=== PATIENT | female | born 1945 | race Caucasian/White ===

== ENCOUNTER → 2021-04-14 17:38 | Outpatient (CLI) | payer MEDICARE, OTHER, SELFPAY ==
[2021-04-14 20:08] LABS: COVID19 -Nasal RAPID Negative (Negative)
== END ==
PROVIDERS: PCP Family Medicine; Visit Provider Nurse Practitioner
DX: Z20.822 Contact with and (suspected) exposure to COVID-19 (principal); J31.2 Chronic pharyngitis
CPT/HCPCS: 87070; 87635

== ENCOUNTER → 2024-01-12 09:00 | Outpatient (CLI) | payer MEDICARE, SELFPAY | PROVIDERS: PCP Family Medicine; Visit Provider Registered Nurse | DX: R30.0 Dysuria (principal) | CPT/HCPCS: 87077; 87086 ==

== ENCOUNTER → 2024-02-18 08:22 | Outpatient (CLI) | payer MEDICARE, SELFPAY ==
[2024-02-18 08:51] LABS: Add Manual Diff / Slide Review NO; Basophils Absolute Auto 100 /uL (0-100); Eosinophils Absolute Auto 100 /uL (0-450); Eosinophils Percent Auto 1.5 % (2-4); Hemoglobin 14.6 g/dL (12.0-16.0); Lymphocytes Absolute Auto 2100 /uL (1100-4500); Lymphocytes Percent Auto 33.6 % (25-40); Mean Corpuscular HGB Conc 34.9 % (30-36); Mean Corpuscular Hemoglobin 32.7 PG (26-34); Mean Corpuscular Volume 93.8 fL (80-100); Monocytes Absolute Auto 500 /uL (0-900); Monocytes Percent Auto 7.8 % (3-14); Neutrophils Absolute Auto 3500 /uL (1500-7000); Neutrophils Percent Auto 56.1 % (50-75); Platelet Count 267 X10^3/uL (150-400); Red Blood Cell Count 4.47 X10^6/uL (4.0-5.2); Red Cell Distribution Width 12.4 % (11.6-14.8); White Blood Cell Count 6.3 X10^3/uL (4.5-11.0)
[2024-02-18 09:01] LABS: Hemoglobin A1C% w Est Avg Glu 5.9 % (4.0-6.0)
[2024-02-18 09:17] LABS: Alanine Aminotransferase 25 IU/L (<35); Albumin 4.6 g/dL (3.5-5.0); Albumin Globulin Ratio 1.7 (1.0-2.8); Alkaline Phosphatase 94 U/L (38-126); Aspartate Aminotransferase 28 IU/L (14-36); BUN Creatinine Ratio 24.1 (6-22); Bilirubin Total 0.6 mg/dL (0.2-1.3); Blood Urea Nitrogen 19 mg/dL (7-17); Calcium 9.3 mg/dL (8.4-10.2); Carbon Dioxide 25 mmol/L (22-32); Chloride 106 mmol/L (98-107); Cholesterol 267 mg/dL (140-199); Estimated Glomerular Filt Rate > 60 mL/min (>60); Globulin 2.7 g/dL (1.7-4.1); Glucose 132 mg/dL (80-110); HDL Cholesterol 62 mg/dL (40-60); HEMOLYSIS < 15 (0-50); LDL Cholesterol Calculated 150 mg/dL (<100); Potassium 4.5 mmol/L (3.4-5.1); Sodium 139 mmol/L (137-145); Total Protein 7.3 g/dL (6.3-8.2); Triglycerides 274 mg/dL (35-150)
[2024-02-18 09:21] LABS: High Sensitivity CRP - Cardiac 5.2 mg/L (1.0-3.0)
[2024-02-18 09:41] LABS: TSH w/ Reflex to FT4 3.12 uIU/mL (0.47-4.68)
[2024-02-18 10:00] LABS: Vitamin B12 367 pg/mL (239-931)
== END ==
PROVIDERS: PCP Family Medicine; Referring Provider Family Medicine; Visit Provider Family Medicine
DX: R73.9 Hyperglycemia, unspecified; E78.00 Pure hypercholesterolemia, unspecified; R25.2 Cramp and spasm; R59.1 Generalized enlarged lymph nodes; R53.83 Other fatigue; R03.0 Elevated blood-pressure reading, without diagnosis of hypertension
CPT/HCPCS: 36415; 80053; 80061; 82607; 83036; 83525; 83735; 84443; 85025; 86140

== ENCOUNTER → 2024-06-08 15:00 | Outpatient (CLI) | payer MEDICARE, SELFPAY ==
--- NOTE | 2024-06-08 15:02 | DI.RAD.S_ITS ---
PROCEDURE: XR HIP W PEL IF DONE FERNANDO MIN 4V INDICATIONS: Tightness R upper thigh; weakness R leg; possible OA TECHNIQUE: AP pelvis with lateral view(s) of the bilateral hip(s). COMPARISON: None. FINDINGS: Mild degenerative change of the right hip. Joint space of the left hip is well maintained. No acute fracture or dislocation of either hip. 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 Multiple lucent lesion in the right femur diaphysis, partially visualized. 2.7 cm sclerotic lesion in the posterior iliac wing, nonspecific. IMPRESSION: Multiple lucent lesions in the right femur diaphysis, partially visualized. Recommend further evaluation with dedicated right femur radiograph. Dictated by: Mary Badillo M.D. on 06/08/2024 at 18:24 Approved by: Mary Badillo M.D. on 06/08/2024 at 18:27
== END ==
PROVIDERS: Family Provider Family Medicine; PCP Family Medicine; Referring Provider Physician Assistant; Visit Provider Physician Assistant
DX: M62.89 Other specified disorders of muscle (principal); M89.9 Disorder of bone, unspecified; R29.898 Other symptoms and signs involving the musculoskeletal system
CPT/HCPCS: 73522

== ENCOUNTER → 2024-06-28 12:12 | Outpatient (CLI) | payer MEDICARE, SELFPAY ==
[2024-06-29 12:43] LABS: C difficie Toxins A and B, EIA Negative (Negative)
[2024-06-30 18:06] LABS: Calprotectin, Stool 26 ug/g (0-120)
== END ==
PROVIDERS: Physician Assistant; Family Provider Family Medicine; PCP Family Medicine; Referring Provider Family Medicine; Visit Provider Family Medicine
DX: R19.7 Diarrhea, unspecified (principal); R11.0 Nausea
CPT/HCPCS: 83993; 87324

== ENCOUNTER 2024-07-02 17:29 | Emergency (ER) | payer MEDICARE, SELFPAY ==
[2024-07-02] VITALS (9 sets, daily range): BP systolic 207–214; BP diastolic 89–101; PULSE 61–73; RESP 16–22; TEMP 36.7; O2SAT 97–99; BMI 28.8
--- NOTE | 2024-07-02 17:54 | DI.RAD.S_ITS ---
PROCEDURE: XR CHEST 1V INDICATIONS: chest pain TECHNIQUE: One view of the chest was acquired. COMPARISON: None. FINDINGS: Surgical changes and devices: None. Lungs and pleura: Hazy left mid lung zone opacity. Hazy right suprahilar opacity. Mediastinum: Mediastinal contours appear normal. Heart size is normal. Bones and chest wall: No suspicious bony lesions. Overlying soft tissues appear unremarkable. IMPRESSION: Hazy bilateral airspace opacities, concerning for atypical pneumonia. Dictated by: Damian White M.D. on 07/02/2024 at 18:48 Approved by: Damian White M.D. on 07/02/2024 at 18:50
--- NOTE | 2024-07-02 18:05 | EKG_ITS ---
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
[2024-07-02 18:42] LABS: Add Manual Diff / Slide Review NO; Basophils Absolute Auto 100 /uL (0-100); Basophils Percent Auto 0.8 % (0-2); Eosinophils Absolute Auto 100 /uL (0-450); Eosinophils Percent Auto 1.2 % (2-4); Hematocrit 38.7 % (36-46); Lymphocytes Absolute Auto 2300 /uL (1100-4500); Lymphocytes Percent Auto 30.5 % (25-40); Mean Corpuscular HGB Conc 33.7 % (30-36); Mean Corpuscular Hemoglobin 31.7 PG (26-34); Monocytes Absolute Auto 600 /uL (0-900); Monocytes Percent Auto 8.2 % (3-14); Neutrophils Absolute Auto 4400 /uL (1500-7000); Neutrophils Percent Auto 59.3 % (50-75); Platelet Count 237 X10^3/uL (150-400); Red Blood Cell Count 4.12 X10^6/uL (4.0-5.2); White Blood Cell Count 7.4 X10^3/uL (4.5-11.0)
[2024-07-02 18:52] LABS: INR 1.2 (0.9-1.3); Prothrombin Time 13.5 SECONDS (9.4-12.5)
[2024-07-02 18:54] LABS: Alanine Aminotransferase 44 IU/L (<35); Albumin 4.4 g/dL (3.5-5.0); Albumin Globulin Ratio 1.4 (1.0-2.8); Alkaline Phosphatase 121 U/L (38-126); Aspartate Aminotransferase 70 IU/L (14-36); BUN Creatinine Ratio 31.9 (6-22); Bilirubin Total 0.6 mg/dL (0.2-1.3); Blood Urea Nitrogen 22 mg/dL (7-17); Calcium 9.1 mg/dL (8.4-10.2); Carbon Dioxide 23 mmol/L (22-32); Chloride 107 mmol/L (98-107); Creatine Kinase 125 U/L (30-135); Estimated Glomerular Filt Rate > 60 mL/min (>60); Globulin 3.1 g/dL (1.7-4.1); Glucose 92 mg/dL (80-110); HEMOLYSIS 37 (0-50); Lipase 226 U/L (23-300); Magnesium 2.1 mg/dL (1.6-2.3); Potassium 3.8 mmol/L (3.4-5.1); Sodium 139 mmol/L (137-145); Total Protein 7.5 g/dL (6.3-8.2)
[2024-07-02 18:55] LABS: PTT Partial Thromboplastin Tim 25 SECONDS (25.1-36.5)
[2024-07-02 19:06] LABS: NT-proBNP (BNP-Adult 18+) 383 pg/mL (<450); Troponin I < 0.012 ng/mL (0.01-0.034)
--- NOTE | 2024-07-02 19:25 | ED_ITS ---
HPI - General Adult General Chief complaint: Hypertension Stated complaint: high BP, dizziness, SOB Time Seen by Provider: 07/02/24 18:00 Source: patient Mode of arrival: Wheelchair History of Present Illness HPI narrative: Patient is a 79-year-old female he was sent over from the walk-in clinic for evaluation of high blood pressure, dizziness and shortness of breath. She was made worked up for multiple neurologic issues by her primary doctor. She denies any fevers but does have a cough. No underlying lung pathology. Has not tried anything for symptoms prior to arrival. Related Data Previous Rx's Medication Instructions Recorded azithromycin 250 mg tablet 250 mg PO DAILY 4 days #4 tabs 07/02/24 ondansetron 4 mg disintegrating 4 mg PO Q6H PRN nausea and 07/02/24 tablet vomiting #10 tabs Allergies Allergy/AdvReac Type Severity Reaction Status Date / Time Sulfa (Sulfonamide Allergy Unknown Nausea Verified 07/02/24 17:59 Antibiotics) chemo drugs AdvReac Intermediate nausea, Uncoded 07/02/24 17:59 vomiting Review of Systems Review of Systems ROS Unobtainable: All systems reviewed & are unremarkable except as noted in HPI and below Patient History Medical History History of cystocele History of malignant neoplasm of both breasts Surgical History (Updated 03/01/24 @ 10:46 by Nava Little DO) S/P breast reconstruction, bilateral S/P mastectomy, bilateral (~2017) Social History Smoking Status: Never smoker alcohol intake: current substance use type: does not use Smoking Status: Never smoker Exam Initial Vital Signs Initial Vital Signs: Vital Signs Pulse Rate 73 07/02/24 17:47 Pulse Oximetry 98 07/02/24 17:47 Const General: cooperative and comfortable HENMT Head: normal to inspection and normocephalic Resp Effort & Inspection: not labored, no respiratory distress and tachypneic Auscultation: rhonchi Cardio Rate: regular rate GI Inspection: normal to inspection and non-distended Skin General: no rashes or lesions noted Neuro General: patient alert and patient awake Course Orders Ordered: ED Orders 07/02/24 17:54 XR chest 1V Stat EKG-12 Lead Stat 07/02/24 18:30 Complete Blood Count AUTO DIFF Stat Comprehensive Metabolic Panel Stat Lipase Stat Magnesium Stat NT-proBNP (BNP-Adult 18+) Stat PTT Partial Thromboplastin Nick Stat Prothrombin Time INR Stat Troponin & CK Cardiac Panel Stat Discontinued Medications Aspirin (Aspirin 81 Mg Chew Tab) 324 mg PO NOW ONE Stop: 07/02/24 17:55 Last Admin: 07/02/24 19:06 Dose: Not Given Documented By: Azithromycin (Azithromycin 250 Mg Tablet) 500 mg PO NOW ONE Stop: 07/02/24 19:26 Last Admin: 07/02/24 19:33 Dose: 500 mg Documented By: Vital Signs Vital signs: Vital Signs - 8 hr 07/02/24 17:47 07/02/24 17:50 07/02/24 17:50 Temperature Pulse Rate 73 65 Respiratory Rate 22 Blood Pressure 214/91 H Pulse Oximetry 98 97 Oxygen Delivery Method 07/02/24 17:51 07/02/24 17:51 07/02/24 17:54 Temperature 98.1 F Pulse Rate 70 68 Respiratory Rate 16 16 18 Blood Pressure 211/96 H 211/96 H Pulse Oximetry 98 98 98 Oxygen Delivery Method Room Air 07/02/24 18:00 07/02/24 18:00 07/02/24 18:30 Temperature Pulse Rate 63 62 Respiratory Rate 18 18 Blood Pressure 207/101 H Pulse Oximetry 97 98 Oxygen Delivery Method 07/02/24 19:00 07/02/24 19:30 07/02/24 19:38 Temperature Pulse Rate 62 61 Respiratory Rate 22 19 Blood Pressure 210/89 H Pulse Oximetry 98 97 Oxygen Delivery Method 07/02/24 19:38 Temperature Pulse Rate 62 Respiratory Rate 19 Blood Pressure Pulse Oximetry 99 Oxygen Delivery Method Room Air Medical Decision Making Lab Data Lab results reviewed: Yes I reviewed the patient's lab results. 07/02/24 18:30 07/02/24 18:30 Labs: Lab Results 07/02/24 Range/Units 18:30 WBC 7.4 (4.5-11.0) X10^3/uL RBC 4.12 (4.0-5.2) X10^6/uL Hgb 13.0 (12.0-16.0) g/dL Hct 38.7 (36-46) % MCV 94.0 (80-100) fL MCH 31.7 (26-34) PG MCHC 33.7 (30-36) % RDW 13.0 (11.6-14.8) % Plt Count 237 (150-400) X10^3/uL Neut % (Auto) 59.3 (50-75) % Lymph % (Auto) 30.5 (25-40) % [place] % (Auto) 8.2 (3-14) % Eos % (Auto) 1.2 L (2-4) % Baso % (Auto) 0.8 (0-2) % Neut # (Auto) 4400 (5042-5566) /uL Lymph # (Auto) 2300 (7753-2664) /uL [place] # (Auto) 600 (0-900) /uL Eos # (Auto) 100 (0-450) /uL Baso # (Auto) 100 (0-100) /uL PT 13.5 H (9.4-12.5) SECONDS INR 1.2 (0.9-1.3) APTT 25 L (25.1-36.5) SECONDS Sodium 139 (137-145) mmol/L Potassium 3.8 (3.4-5.1) mmol/L Chloride 107 (98-107) mmol/L Carbon Dioxide 23 (22-32) mmol/L BUN 22 H (7-17) mg/dL Creatinine 0.69 (0.52-1.04) mg/dL Estimated GFR > 60 (>60) mL/min BUN/Creatinine Ratio 31.9 H (6-22) Glucose 92 (80-110) mg/dL Calcium 9.1 (8.4-10.2) mg/dL Magnesium 2.1 (1.6-2.3) mg/dL Total Bilirubin 0.6 (0.2-1.3) mg/dL AST 70 H (14-36) IU/L ALT 44 H (<35) IU/L Alkaline Phosphatase 121 (38-126) U/L Total Creatine Kinase 125 (30-135) U/L Troponin I < 0.012 (0.01-0.034) ng/mL NT-Pro-B Natriuret Pep 383 (<450) pg/mL Total Protein 7.5 (6.3-8.2) g/dL Albumin 4.4 (3.5-5.0) g/dL Globulin 3.1 (1.7-4.1) g/dL Albumin/Globulin Ratio 1.4 (1.0-2.8) Lipase 226 (23-300) U/L Imaging Data Chest x-ray: Radiologist's Impression: PROCEDURE: XR CHEST 1V INDICATIONS: chest pain TECHNIQUE: One view of the chest was acquired. COMPARISON: None. FINDINGS: Surgical changes and devices: None. Lungs and pleura: Hazy left mid lung zone opacity. Hazy right suprahilar opacity. Mediastinum: Mediastinal contours appear normal. Heart size is normal. Bones and chest wall: No suspicious bony lesions. Overlying soft tissues appear unremarkable. IMPRESSION: Hazy bilateral airspace opacities, concerning for atypical pneumonia. ECG Data Attestation: I personally reviewed and interpreted this ECG as follows: Interpretation: Sinus rhythm Ventricular rate is 60 LVH Normal QRS No ST T wave changes MDM Narrative Medical decision making narrative: No leukocytosis but chest x-ray concerning for potential atypical pneumonia. She has been having shortness of breath. Because of this we will treat with antibiotics. First dose given here in the emergency department a prescription was sent to the pharmacy of her choice. She was not hypoxic. Not clinically in heart failure. Recommended the patient contact your primary care doctor for follow-up. She was given return precautions. She expressed understanding and agreement. Discharge Plan Departure Patient Disposition: Home Clinical Impression: Atypical pneumonia Instructions: Atypical Pneumonia Activity Restrictions/Additional Instructions: Take the antibiotics as directed. Your next dose will be Friday07/03/2024. Also recommend that you contact your primary care doctor for a follow-up. Return to the emergency department for new symptoms. Prescriptions: New azithromycin 250 mg tablet 250 mg PO DAILY 4 Days Qty: 4 0RF Rx Instructions: start on day 2 of therapy ondansetron 4 mg tablet,disintegrating 4 mg PO Q6H PRN (Reason: nausea and vomiting) Qty: 10 0RF Referrals: Nava Little DO [Primary Care Provider] - Stand Alone Forms: Patient Portal/API/Survey
[2024-07-02] MEDS: AZITHROMYCIN 250 MG TABLET 500 MG PO (19:33)
== END 2024-07-02 19:57 | disposition home or self-care (01) ==
PROVIDERS: Emergency Medicine; Emergency Provider Emergency Medicine; Family Provider Family Medicine; PCP Family Medicine
DX: J18.9 Pneumonia, unspecified organism (principal); R07.9 Chest pain, unspecified; R03.0 Elevated blood-pressure reading, without diagnosis of hypertension
CPT/HCPCS: 36415; 71045; 80053; 82550; 83690; 83735; 83880; 84484; 85025; 85610; 85730; 93005; 99284

== ENCOUNTER → 2024-07-15 14:52 | Outpatient (CLI) | payer MEDICARE, SELFPAY ==
--- NOTE | 2024-07-15 14:52 | DI.ECHO.S_ITS ---
[facility] : : [address] : : [facility] : : [place], : : [place] [address] : : Phone: [phone] Echocardiogram Report + + :Name: MARTIN AWAD Study Date: 07/15/2024 Height: 65 in : :[facility] ReadingLocation: Weight: 160 lb : : Gender: Female BSA: 1.8 m2 : :: 1945 Age: 79 yrs BP: 162/90 mmHg: :Reason For Study: MURMUR : :Ordering Physician: DECLAN, : :RAFIQ Mcdaniel Performed By: Shaun Eduardo : :Referring: RAFIQ MANRIQUEZ : + + Interpretation Summary The left ventricle is normal in size. The ejection fraction is estimated to be 60-65%. There are no focal wall motion abnormalities. Diastolic parameters suggest a relaxation abnormality of the left ventricle, consistent with probable normal filling pressures. The right ventricle is normal in size and function. The right ventricular systolic pressure is estimated to be at least 24 mmHg based on an estimated right atrial pressure of 3 mm Hg. The left atrial size is normal. There is mild aortic regurgitation. There is no other significant valvular heart disease. The ascending aorta is mildly enlarged. Procedure: A two-dimensional transthoracic echocardiogram with color flow and Doppler was performed. The study quality was technically difficult. There is no prior echocardiogram noted for this patient. BREAST IMPLANTS. The patient was in normal sinus rhythm during the exam. Left Ventricle: The left ventricle is normal in size. There is normal left ventricular wall thickness. There is no ventricular septal defect visualized. The ejection fraction is estimated to be 60-65%. There are no focal wall motion abnormalities. Diastolic parameters suggest a relaxation abnormality of the left ventricle, consistent with probable normal filling pressures. Right Ventricle: The right ventricle is normal in size and function. Atria: The left atrial size is normal. Right atrial size is normal. There is no Doppler evidence for an interatrial shunt. Mitral Valve: The mitral valve leaflets appear normal. There is no evidence of stenosis, fluttering, or prolapse. There is no mitral regurgitation noted. Aortic Valve: The aortic valve is not well visualized. There is mild aortic regurgitation. Tricuspid Valve: The tricuspid valve is not well visualized. There is trace tricuspid regurgitation. The right ventricular systolic pressure is estimated to be at least 24 mmHg based on an estimated right atrial pressure of 3 mm Hg. Pulmonic Valve: The pulmonic valve is not well visualized. There is no other significant valvular heart disease. Great Vessels: The aortic root is normal size. The ascending aorta is mildly enlarged. The pulmonary artery is normal size. The IVC is of normal diameter and collapses greater than 50% with a sniff. This suggests a low right atrial pressure of 3 mm Hg. Pericardium/ Pleura There is no pericardial effusion. MMode/2D Measurements & Calculations LVIDd: 3.8 cm LVOT diam: 2.0 cm LVIDs: 2.3 cm Ao root diam: 3.6 cm IVSd: 1.1 cm asc Aorta Diam: 3.8 cm LVPWd: 0.94 cm Ao Arch Diam (Prox Trans): 1.6 cm LV brown. diameter/BSA (cm/m^2): 2.1 LV sys. diameter/BSA (cm/m^2): 1.3 FS: 38.0 % EPSS: 0.49 cm LA A2 area: 17.8 cm2 RA long axis: 4.3 cm LA A4 area: 16.1 cm2 RA area: 11.4 cm2 LA length (vol): 4.8 cm RA vol: 25.3 ml LA vol: 50.6 ml RA : 14.1 ml/m2 LA vol index: 28.1 ml/m2 RVD1 (basal): 2.9 cm RVD2 (mid): 2.4 cm TAPSE: 2.0 cm Doppler Measurements & Calculations Ao V2 max: 135.8 cm/sec LVOT Max Castillo: 117.1 cm/sec Ao V2 mean: 93.2 cm/sec LV V1 max P.5 mmHg Ao V2 VTI: 32.3 cm LV V1 VTI: 30.1 cm Ao max P.4 mmHg Ao mean P.8 mmHg G[place]EN[place](I,D): 3.0 cm2 MV E max castillo: 51.4 cm/sec [place](V,D): 2.7 cm2 MV A max castillo: 66.4 cm/sec [place] indexed to BSA (cm^2/m^2): 1.6 MV E/A: 0.77 sev ratio: 0.93 Med Peak E' Castillo: 3.8 cm/sec E/E' med: 13.4 Lat Peak E' Castillo: 7.5 cm/sec E/E' lat: 6.8 E/e' average: 10.1 MV dec time: 0.23 sec TR max castillo: 228.0 cm/sec TR max P.8 mmHg SV(LVOT): 95.6 ml Reading Physician:01:30 AM
== END ==
PROVIDERS: Family Provider Family Medicine; PCP Family Medicine; Referring Provider Physician Assistant; Visit Provider Physician Assistant
DX: I35.1 Nonrheumatic aortic (valve) insufficiency (principal); R01.1 Cardiac murmur, unspecified
CPT/HCPCS: 93306

== ENCOUNTER → 2024-07-22 10:19 | Outpatient (CLI) | payer MEDICARE, SELFPAY ==
[2024-07-22 11:11] LABS: Alanine Aminotransferase 71 IU/L (<35); Albumin 4.6 g/dL (3.5-5.0); Albumin Globulin Ratio 1.4 (1.0-2.8); Alkaline Phosphatase 192 U/L (38-126); Aspartate Aminotransferase 116 IU/L (14-36); BUN Creatinine Ratio 18.9 (6-22); Bilirubin Total 0.8 mg/dL (0.2-1.3); Blood Urea Nitrogen 23 mg/dL (7-17); Calcium 9.7 mg/dL (8.4-10.2); Carbon Dioxide 25 mmol/L (22-32); Chloride 102 mmol/L (98-107); Estimated Glomerular Filt Rate 45 mL/min (>60); Globulin 3.3 g/dL (1.7-4.1); Glucose 120 mg/dL (80-110); HEMOLYSIS < 15 (0-50); Potassium 4.5 mmol/L (3.4-5.1); Sodium 137 mmol/L (137-145); Total Protein 7.9 g/dL (6.3-8.2)
[2024-07-22 11:13] LABS: Cholesterol 215 mg/dL (140-199); HDL Cholesterol 85 mg/dL (40-60); LDL Cholesterol Calculated 102 mg/dL (<100); Triglycerides 138 mg/dL (35-150)
[2024-07-22 11:15] LABS: Hemoglobin A1C% w Est Avg Glu 5.9 % (4.0-6.0)
[2024-07-23 08:10] LABS: CRP, High Sensitivity 13.69 mg/L (0.00-3.00)
== END ==
PROVIDERS: Physician Assistant; Family Provider Family Medicine; PCP Family Medicine; Referring Provider Family Medicine; Visit Provider Family Medicine
DX: R73.9 Hyperglycemia, unspecified (principal); R74.8 Abnormal levels of other serum enzymes; E66.9 Obesity, unspecified; E78.00 Pure hypercholesterolemia, unspecified
CPT/HCPCS: 80053; 80061; 83036; 86140

== ENCOUNTER → 2024-07-26 11:04 | Outpatient (CLI) | payer MEDICARE, SELFPAY ==
--- NOTE | 2024-07-26 11:05 | DI.RAD.S_ITS ---
PROCEDURE: XR CHEST 2V INDICATIONS: recheck, sx no better after tx TECHNIQUE: 2 views of the chest were acquired. COMPARISON: [facility], CR, XR CHEST 1V, 07/02/2024, 17:51. FINDINGS: Heart, mediastinum and pulmonary vascular: Heart is normal in size and configuration. Mediastinum is unremarkable. Pulmonary vascular is normal. Lungs: A vague 10 cm density is seen in the lateral left midthorax has partially destroyed the posterior left 6th and 7th ribs. 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 There is also a 4 cm mass in the paramediastinal right upper lobe. Scattered calcified granulomas present in both lungs Pleural spaces: Normal-no effusions or pneumothorax. Bones and soft tissues: Normal IMPRESSION: Vague 10 cm mass-like density lateral left midthorax which partially destroys the posterior left 6th and 7th ribs. 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 There is also a 4.4 cm mass in the paramediastinal right upper lobe. Suggest chest CT Dictated by: Heriberto Castaneda M.D. on 07/27/2024 at 10:58 Approved by: Heriberto Castaneda M.D. on 07/27/2024 at 11:01
== END ==
PROVIDERS: Family Provider Family Medicine; PCP Family Medicine; Referring Provider Family Medicine; Visit Provider Family Medicine
DX: J18.9 Pneumonia, unspecified organism (principal); R91.8 Other nonspecific abnormal finding of lung field
CPT/HCPCS: 71046

== ENCOUNTER → 2024-07-29 13:21 | Outpatient (CLI) | payer MEDICARE, SELFPAY ==
--- NOTE | 2024-07-29 13:22 | DI.CT.S_ITS ---
PROCEDURE: CT CHEST W CON INDICATIONS: eval 10cm density lateral left and 4cm paramediastinal rt TECHNIQUE: After the administration of intravenous contrast, 5 mm thick sections acquired from the pulmonary apices to the posterior costophrenic angles. 1 mm axial lung, 5 mm thick coronal and sagittal reformats and 7 mm axial MIP were acquired. For radiation dose reduction, the following was used: automated exposure control, adjustment of mA and/or kV according to patient size. COMPARISON: [facility], CR, XR CHEST 2V, 07/26/2024, 11:02. FINDINGS: Image quality: Diagnostic. Lower Neck: No enlarged lymph nodes. Thyroid: No thyroid nodules which require sonographic follow up, per consensus guidelines. Axillae: No enlarged lymph nodes. Chest Wall: Bilateral breast implants. Bones: Multiple osseous metastases are seen multiple lesions are seen in the spine, for instance at the pedicle and transverse process of T10 with extension to the epidural space. Moderate T9 compression fracture may be pathologic. Lungs and Pleura: Numerous bilateral small pulmonary nodules suspicious for metastatic disease. The largest measures approximately the 2.3 x 1.9 cm adjacent to the left major fissure (3/171). Trace left pleural effusion. No right pleural effusion. No pneumothorax. Heart: Heart size is normal. No pericardial effusion. Thoracic Vessels: The aorta and pulmonary arteries demonstrate normal size. Mediastinum and Tete: Multiple large mediastinal and left hilar lymph nodes, for example a 1.3 cm short axis AP window lymph node. Esophagus: No wall thickening. Upper Abdomen: Multiple hepatic masses are present. Coarse calcifications in the spleen are most likely benign. Small hiatal hernia. IMPRESSION: 1. 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 2. Numerous bilateral pulmonary nodules, the largest in the anterior left lower lobe measuring up to 2.3 x 1.9 cm. 3. Multiple enlarged mediastinal and left hilar lymph nodes. 4. Multiple hepatic masses compatible with hepatic metastatic disease. 5. Numerous osseous metastases. Moderate T9 compression fracture, which may be pathologic. T12 metastasis has a soft tissue component extending into the left epidural space. MRI could be performed for further evaluation of the spinal canal if indicated clinically. Approved by: King Wagner M.D. on 07/29/2024 at 20:10
== END ==
PROVIDERS: Family Provider Family Medicine; PCP Family Medicine; Referring Provider Family Medicine; Visit Provider Family Medicine
DX: C80.1 Malignant (primary) neoplasm, unspecified (principal); C79.51 Secondary malignant neoplasm of bone; K76.9 Liver disease, unspecified; R91.8 Other nonspecific abnormal finding of lung field; R59.0 Localized enlarged lymph nodes; D73.89 Other diseases of spleen; M48.54XA Collapsed vertebra, not elsewhere classified, thoracic region, initial encounter for fracture; K44.9 Diaphragmatic hernia without obstruction or gangrene; R06.02 Shortness of breath; Z87.01 Personal history of pneumonia (recurrent)
CPT/HCPCS: 71260; Q9967

== ENCOUNTER 2024-08-01 18:23 | Emergency (ER) | payer MEDICARE, SELFPAY ==
[2024-08-01] VITALS (8 sets, daily range): BP systolic 157–195; BP diastolic 70–95; PULSE 58–72; RESP 16–18; TEMP 36.2; O2SAT 93–97; BMI 27.8
--- NOTE | 2024-08-01 18:36 | ED_ITS ---
HPI - General Adult General Chief complaint: Recheck/Abnormal Lab/Rx Stated complaint: Increased pain; Hx of cancer. Time Seen by Provider: 08/01/24 18:32 History of Present Illness HPI narrative: 79-year-old female with history of prior breast cancer, recent diagnosis of pneumonia, on follow up chest x-ray had suspicious lesions leading to CT scan chest imaging, metastatic lesions were present, metastatic lesions have not been biopsy to confirm if there breast or some other cancer, awaiting further follow up. Now with left upper chest discomfort radiating to the left arm since this afternoon. No lifting or trauma or new activities. No fevers or chills. No new cough. No shortness of breath present. Pain in the left shoulder and arm is worse with isolated left arm movements and with neck/head movements. She took hydrocodone before arrival, pain seems to be decreasing, has some nausea. No diaphoresis. No swelling of the left arm. No swelling of either leg. Related Data Home Medications Medication Instructions Recorded Confirmed naproxen 500 mg tablet 500 mg PO BID 07/26/24 07/26/24 Previous Rx's Medication Instructions Recorded ondansetron 4 mg disintegrating 4 mg PO Q6H PRN nausea and 07/13/24 tablet vomiting #30 tabs gabapentin 100 mg capsule 100 mg PO TID #180 caps 07/26/24 hydrocodone 5 mg-acetaminophen 325 0.5 - 1 tab PO BEDTIME PRN pain 07/30/24 mg tablet #90 tabs hydrocodone 5 mg-acetaminophen 325 0.5 - 1 tab PO Q6-8H PRN pain #21 07/30/24 mg tablet tabs Allergies Allergy/AdvReac Type Severity Reaction Status Date / Time carboplatin AdvReac Severe Vomiting Verified 08/01/24 18:29 Sulfa (Sulfonamide AdvReac Unknown Nausea Verified 08/01/24 18:28 Antibiotics) chemo drugs AdvReac Intermediate nausea, Uncoded 08/01/24 18:28 vomiting Patient History Medical History (Updated 08/01/24 @ 22:05 by Estevan Samuels MD) History of malignant neoplasm of both breasts History of cystocele Surgical History (Updated 03/01/24 @ 10:46 by Nava Little DO) S/P breast reconstruction, bilateral S/P mastectomy, bilateral (~2016) Social History Smoking Status: Never smoker alcohol intake: current substance use type: does not use Smoking Status: Never smoker Exam Narrative Exam Narrative: GENERAL:Well-developed patient, in mild distress. HEAD: Atraumatic. Normocephalic. EYES: Pupils equal round and reactive. Extraocular motions intact. No scleral icterus. No injection or drainage. ENT: Nose without bleeding, purulent drainage. Throat without erythema, tonsillar hypertrophy or exudate. Airway patent. NECK: Trachea midline. Non tender. Cervical lymphadenopathy obvious CARDIOVASCULAR: Regular rate and rhythm without murmurs, gallops, or rubs. No mass or lesion in the left clavicular superior chest/neck area. Well-healed left chest scar from previous breast surgery reconstruction surgery. RESPIRATORY: Clear to auscultation. Breath sounds equal bilaterally. No wheezes, rales, or rhonchi. GASTROINTESTINAL: Abdomen soft, non-tender, nondistended. EXTREMITIES: No edema or joint tenderness. BACK: Nontender without deformity or crepitance. No flank tenderness. NEURO: AOx3. Motor functions grossly nonfocal SKIN: No rash or erythema of visible areas Initial Vital Signs Initial Vital Signs: Vital Signs Temperature 97.1 F L 08/01/24 18:29 Pulse Rate 72 08/01/24 18:29 Respiratory Rate 18 08/01/24 18:29 Blood Pressure 157/70 H 08/01/24 18:29 Pulse Oximetry 97 08/01/24 18:29 Oxygen Delivery Method Room Air 08/01/24 18:29 Course Orders Ordered: ED Orders 08/01/24 18:40 XR chest 1V Stat EKG-12 Lead Stat 08/01/24 19:00 Complete Blood Count AUTO DIFF Stat Comprehensive Metabolic Panel Stat Lipase Stat Troponin & CK Cardiac Panel Stat 08/01/24 19:15 CT angio chest PE protocol Stat 08/01/24 19:32 CT abdomen pelvis w con Stat Discontinued Medications Ondansetron HCl (Ondansetron 4 Mg/2 Ml Inj) 4 mg IV NOW ONE Stop: 08/01/24 19:01 Last Admin: 08/01/24 19:34 Dose: 4 mg Documented By: MONICA Vital Signs Vital signs: Vital Signs - 8 hr 08/01/24 18:29 08/01/24 19:20 08/01/24 20:10 Temperature 97.1 F L Pulse Rate 72 71 Respiratory Rate 18 18 18 Blood Pressure 157/70 H 171/83 H 181/88 H Pulse Oximetry 97 95 Oxygen Delivery Method Room Air Room Air 08/01/24 20:10 08/01/24 20:30 08/01/24 21:00 Temperature Pulse Rate 69 65 Respiratory Rate Blood Pressure 182/85 H Pulse Oximetry 95 93 Oxygen Delivery Method Room Air 08/01/24 21:00 08/01/24 21:30 08/01/24 22:00 Temperature Pulse Rate 58 L 63 71 Respiratory Rate Blood Pressure Pulse Oximetry 93 93 94 Oxygen Delivery Method Room Air 08/01/24 22:00 08/01/24 22:09 08/01/24 22:09 Temperature Pulse Rate 65 Respiratory Rate 16 Blood Pressure 195/95 H 184/90 H 184/90 H Pulse Oximetry 94 Oxygen Delivery Method Room Air Medical Decision Making Lab Data Lab results reviewed: Yes I reviewed the patient's lab results. Lab results narrative: White blood cell count 7600, hemoglobin 13, platelets adequate. Basic metabolic panel unremarkable. T bili normal, mild transaminitis, alkaline phosphatase slight elevation. Lipase 724 elevated. Troponin negative/unmeasurable. 08/01/24 19:00 08/01/24 19:00 Labs: Lab Results 08/01/24 Range/Units 19:00 WBC 7.6 (4.5-11.0) X10^3/uL RBC 4.11 (4.0-5.2) X10^6/uL Hgb 13.1 (12.0-16.0) g/dL Hct 39.1 (36-46) % MCV 95.2 (80-100) fL MCH 31.8 (26-34) PG MCHC 33.4 (30-36) % RDW 13.3 (11.6-14.8) % Plt Count 294 (150-400) X10^3/uL Neut % (Auto) 62.2 (50-75) % Lymph % (Auto) 27.4 (25-40) % [place] % (Auto) 8.7 (3-14) % Eos % (Auto) 1.0 L (2-4) % Baso % (Auto) 0.7 (0-2) % Neut # (Auto) 4700 (3618-0602) /uL Lymph # (Auto) 2100 (1063-6095) /uL [place] # (Auto) 700 (0-900) /uL Eos # (Auto) 100 (0-450) /uL Baso # (Auto) 100 (0-100) /uL Sodium 136 L (137-145) mmol/L Potassium 4.6 (3.4-5.1) mmol/L Chloride 105 (98-107) mmol/L Carbon Dioxide 21 L (22-32) mmol/L BUN 30 H (7-17) mg/dL Creatinine 1.01 (0.52-1.04) mg/dL Estimated GFR 57 L (>60) mL/min BUN/Creatinine Ratio 29.7 H (6-22) Glucose 117 H (80-110) mg/dL Calcium 9.5 (8.4-10.2) mg/dL Total Bilirubin 0.7 (0.2-1.3) mg/dL AST 114 H (14-36) IU/L ALT 66 H (<35) IU/L Alkaline Phosphatase 198 H (38-126) U/L Total Creatine Kinase 94 (30-135) U/L Troponin I < 0.012 (0.01-0.034) ng/mL Total Protein 7.5 (6.3-8.2) g/dL Albumin 4.4 (3.5-5.0) g/dL Globulin 3.1 (1.7-4.1) g/dL Albumin/Globulin Ratio 1.4 (1.0-2.8) Lipase 724 H (23-300) U/L Imaging Data Chest x-ray: Radiologist's Impression: [address] [address] XRay Report Signed Patient: Tejal Batista MR#: [id number] : 1945 Acct:[id number] Age/Sex: 79 / F Date of Service: 08/01/24 Loc: ED Accession Number: [id number] Procedure: XR chest 1V Ordering Provider: Estevan Samuels MD PROCEDURE: XR CHEST 1V INDICATIONS: chest pain TECHNIQUE: One view of the chest was acquired. COMPARISON: [facility], CT, CT CHEST W CON, 07/29/2024, 14:09. [facility], CR, XR CHEST 2V, 07/26/2024, 11:02. [facility], CR, XR CHEST 1V, 07/02/2024, 17:51. FINDINGS: Surgical changes and devices: None. Lungs and pleura: Hazy opacification of the left upper lobe with underlying nodular masses. No pleural effusions or pneumothorax. Mediastinum: Mediastinal contours appear normal. Heart size is normal. Bones and chest wall: Expansile appearance of the left-sided ribs, secondary to the presumed metastatic disease. Overlying soft tissues appear unremarkable. IMPRESSION: Left upper lobe nodular masses and osseous rib metastases. Otherwise, no acute cardiothoracic process. Dictated by: Adrien Hurd M.D. on 08/01/2024 at 19:04 Approved by: Adrien Hurd M.D. on 08/01/2024 at 19:08 CT angiogram chest: Radiologist's Impression: [place] [address] CT Scan Report Signed Patient: Tejal Batista MR#: [id number] : 1945 Acct:[id number] Age/Sex: 79 / F Date of Service: 08/01/24 Loc: ED Accession Number: [id number] Procedure: CT angio chest PE protocol Ordering Provider: Estevan Samuels MD PROCEDURE: CT ANGIO CHEST PE PROTOCOL INDICATIONS: left chest pain, hx breast CA, recent mets, eval for PE TECHNIQUE: After the administration of intravenous contrast, 2 mm thick sections acquired from the pulmonary apices to the posterior costophrenic angles. 3-dimensional maximum intensity projection (MIP) coronal and sagittal reformats were then acquired through the thorax. For radiation dose reduction, the following was used: automated exposure control, adjustment of mA and/or kV according to patient size. COMPARISON: CT chest with contrast 07/29/2024. FINDINGS: Image quality: Diagnostic. Pulmonary arteries: Pulmonary arteries are normal in size, and demonstrate no intraluminal filling defects to suggest central pulmonary embolism. Lower Neck: No enlarged lymph nodes. Thyroid: No thyroid nodules which require sonographic follow up, per consensus guidelines. Axillae: Postsurgical changes in the right axilla. No enlarged lymph nodes. Chest Wall: Bilateral mastectomies with implant reconstruction. Bones: Numerous lytic lesions seen in the appendicular and axial skeleton. Several left rib lytic lesions are associated with soft tissue component. T10 osseous lesion with soft tissue process involving the pedicle and transverse process with extension to the epidural space at that level. T9 compression fracture, possibly pathologic. Lungs and Pleura: No pneumothorax. Small bilateral pleural effusions with subjacent atelectasis. Innumerable randomly distributed solid nodules most consistent with lung metastasis. Heart: Heart size is normal. No pericardial effusion. Thoracic Vessels: No aortic aneurysm. Mediastinum and Tete: Mediastinal and hilar lymph nodes. Esophagus: No wall thickening. Small hiatal hernia. Upper Abdomen: Innumerable hypodensities in the liver concerning for metastases. Splenic calcified granulomas. IMPRESSION: No pulmonary embolus. Small bilateral pleural effusions with subjacent atelectasis. Redemonstration of innumerable bilateral pulmonary nodules, thoracic lymphadenopathy, multiple hepatic masses and osseous lesions consistent with metastatic disease. Approved by: Yara Holt M.D.,Ph.D. on 08/01/2024 at 20:54 CT scan - abdomen/pelvis: Radiologist's Impression: [place] [address] CT Scan Report Signed Patient: Tejal Batista MR#: [id number] : 1945 Acct:[id number] Age/Sex: 79 / F Date of Service: 08/01/24 Loc: ED Accession Number: [id number] Procedure: CT abdomen pelvis w con Ordering Provider: Estevan Samuels MD PROCEDURE: CT ABDOMEN PELVIS W CON INDICATIONS: lipase elevation TECHNIQUE: After the administration of intravenous contrast, axial sections acquired from the lung bases to the pubic symphysis. Coronal and sagittal reformats were performed. For radiation dose reduction, the following was used: automated exposure control, adjustment of mA and/or kV according to patient size. COMPARISON: Same-day CT chest angiogram 08/01/2024, CT chest 07/29/2024. FINDINGS: Image quality: Diagnostic. Lower Chest: Please see separately dictated CT chest angiogram. ABDOMEN: Liver: Innumerable hepatic masses consistent with metastatic disease. Gallbladder: No radiopaque gallstones or wall thickening. Biliary ducts: No biliary dilation. Pancreas: No ductal dilation. Hypodense 1.2 x 1.7 cm mass in the hepatic body () with possible connection to the duct (). No inflammatory changes. Spleen: Size is within normal limits. Calcified granulomas, probably benign. Adrenal Glands: No adrenal nodules. Kidneys and Ureters: No hydronephrosis. No solid mass. No complex renal cystic lesion which requires follow up. Stomach and Bowel: Normal colonic caliber, without significant wall thickening. Normal caliber appendix in the right lower quadrant. Sigmoid diverticulosis without acute inflammation. Peritoneum: No abnormal intraperitoneal fluid. No free air. Ventral Wall: No significant ventral hernia. Abdominal Nodes: No retroperitoneal or mesenteric adenopathy by size criteria. Vessels: Aorta and inferior vena cava are normal in size. PELVIS: Pelvic Organs: Unremarkable. Bladder: No bladder wall thickening, accounting for underdistention. Pelvic Nodes: No enlarged lymph nodes. Miscellaneous: No inguinal hernias are seen. Bones: Innumerable lytic lesions seen throughout the appendicular and axial skeleton including areas with soft tissue component, for example in the right sacral ala, left sacroiliac, T10 pedicle and transverse process which partially extends into the epidural space, L1 left pedicle, right inferior ramus with possible pathologic fracture,. Redemonstration of T9 IMPRESSION: No acute inflammatory or infectious process identified. No CT evidence of pancreatitis. 1.7 cm hypodense mass in the pancreatic body with probable connection to the main pancreatic duct seen on sagittal view. Finding is indeterminate, differential diagnostic consideration includes metastasis versus IPMN. Continued attention on follow-up imaging. Innumerable hepatic masses consistent with metastasis. Innumerable osseous metastasis in the appendicular and axial skeleton with many lesions associated with soft tissue component. Redemonstration of T9 compression deformity, possible pathologic fracture, right inferior ramus possible pathologic fracture and T10 osseous metastasis with extension into the left epidural space. Please see separately dictated CT chest angiogram obtained concurrently 08/01/2024 for additional findings. Approved by: Yara Holt M.D.,Ph.D. on 08/01/2024 at 21:10 ECG Data Attestation: I personally reviewed and interpreted this ECG as follows: Interpretation: Normal sinus rhythm with rate of 63, no obvious ST segment elevation or depression changes. T-wave inversion lead 3 and F, upright in lead 2. HI 164, QRS 88, QTC 433. MDM Narrative Medical decision making narrative: 79-year-old female with history of breast cancer, more recently treated for pneumonia and follow up chest x-ray findings were concerning, leading to CT scan of the chest that showed likely metastatic disease, no biopsy of the metastases thus far, awaiting further follow up, now with left-sided atraumatic chest discomfort. Afebrile, sirs screen negative. Some tenderness to left trapezius area, no obvious lymphadenopathy.. DDx consider muscular strain, pain from metastatic disease, lymphangitic/vascular obstruction from metastatic disease, pulmonary embolus, pneumonia, ACS, early zoster, other. Chest x-ray, EKG, labs pending. Consider CT angiogram if renal function adequate. Patient declines pain medication, had response to own hydrocodone taken prior to arrival. Does have nausea that she would like to have treated, IV Zofran. Chest x-ray shows left upper lobe nodular mass and osseous rib metastases, no acute process, no mention of infiltrates. See radiology report. EKG with nonspecific T-wave changes inferior, initial troponin negative/unmeasurable. GFR favorable, CTA chest ordered. Lipase noted to be elevated, we will add CT abdomen and pelvis with IV contrast imaging as well. CTA shows no pulmonary embolus, shows left upper lobe mass, bony metastases to the ribs, also some metastases to the superior aspect of visualized liver, some spinal lesions as well. See radiology report CT abdomen and pelvis shows metastatic disease to liver as well, and lymphadenopathy. See radiology report Copies of chest x-ray and CTA and CT reports discussed with patient, with family in the room. Widely metastatic disease. Lesion left upper lobe might be accounting for her current chest discomfort. Continue hydrocodone pain medication for now. Follow up with PCP in the next couple of days as planned for further workup and staging of suspected metastatic neoplastic disease. No obvious pneumonia at this time, no indications for antibiotics identified. Home with family. Return precautions discussed Discharge Plan Departure Patient Disposition: Home Clinical Impression: Left shoulder pain, Left-sided chest pain, Metastatic neoplastic disease Activity Restrictions/Additional Instructions: Left chest and arm discomfort. History of prior remote breast cancer. Recent pneumonia and follow up imaging suggestive of cancerous change, awaiting further follow up with Hematology and Oncology for care plan. Now with increasing pain in the left shoulder and chest area. Chest x-ray showed left apical lung mass but no pneumonia changes today. CT angiogram of the chest was ordered to look for blood clot to the lung, pneumonia, metastases, or other causes of pain. Slight increased lipase was noted. CT abdomen and pelvis was ordered additionally. CT study did not confirm blood clots to the lungs. No pneumonia changes mentioned. There was widely metastatic changes including left apical lung mass, bony metastases to the ribs, spine, liver, and other lymphadenopathy. EKG and blood testing not suggestive of heart attack at this time. It seems by imaging study that the left upper lung mass with metastases to the bone might be accounting for your symptoms today, with pain in that region. Printed copies of your chest x-ray, CT angiogram chest, CT abdomen and pelvis studies were provided, with discussion of the results at bedside with family present. Follow up with your regular provider as planned early this week to coordinate further steps, which might include attempts to biopsy some tissue to help confirm the identity of the metastatic cancer causing all of these changes. Continue taking your pain control medications for now. There does not seem to be any indication to use antibiotics for pneumonia or other process at this time. Return earlier to this/nearest emergency department for any change worsening symptoms or any concerns prior. Thank you for letting our care team take care of you today. Prescriptions: No Action naproxen 500 mg tablet 500 mg PO BID gabapentin 100 mg capsule 100 mg PO TID Qty: 180 1RF Rx Instructions: Can up titrate to max 1200mg/24h hydrocodone-acetaminophen 5-325 mg tablet 0.5 - 1 tab PO Q6-8H PRN (Reason: pain) Qty: 21 0RF hydrocodone-acetaminophen 5-325 mg tablet 0.5 - 1 tab PO BEDTIME PRN (Reason: pain) Qty: 90 0RF ondansetron 4 mg tablet,disintegrating 4 mg PO Q6H PRN (Reason: nausea and vomiting) Qty: 30 3RF Referrals: Nava Little DO [Primary Care Provider] - Stand Alone Forms: Patient Portal/API/Survey
--- NOTE | 2024-08-01 18:40 | EKG_ITS ---
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
--- NOTE | 2024-08-01 18:40 | DI.RAD.S_ITS ---
PROCEDURE: XR CHEST 1V INDICATIONS: chest pain TECHNIQUE: One view of the chest was acquired. COMPARISON: [facility], CT, CT CHEST W CON, 07/29/2024, 14:09. [facility], CR, XR CHEST 2V, 07/26/2024, 11:02. [facility], CR, XR CHEST 1V, 07/02/2024, 17:51. FINDINGS: Surgical changes and devices: None. Lungs and pleura: Hazy opacification of the left upper lobe with underlying nodular masses. No pleural effusions or pneumothorax. Mediastinum: Mediastinal contours appear normal. Heart size is normal. Bones and chest wall: Expansile appearance of the left-sided ribs, secondary to the presumed metastatic disease. Overlying soft tissues appear unremarkable. IMPRESSION: Left upper lobe nodular masses and osseous rib metastases. Otherwise, no acute cardiothoracic process. Dictated by: Adrien Hurd M.D. on 08/01/2024 at 19:04 Approved by: Adrien Hurd M.D. on 08/01/2024 at 19:08
[2024-08-01 19:14] LABS: Add Manual Diff / Slide Review NO; Basophils Absolute Auto 100 /uL (0-100); Basophils Percent Auto 0.7 % (0-2); Eosinophils Absolute Auto 100 /uL (0-450); Hematocrit 39.1 % (36-46); Hemoglobin 13.1 g/dL (12.0-16.0); Lymphocytes Absolute Auto 2100 /uL (1100-4500); Lymphocytes Percent Auto 27.4 % (25-40); Mean Corpuscular HGB Conc 33.4 % (30-36); Mean Corpuscular Hemoglobin 31.8 PG (26-34); Mean Corpuscular Volume 95.2 fL (80-100); Monocytes Absolute Auto 700 /uL (0-900); Monocytes Percent Auto 8.7 % (3-14); Neutrophils Absolute Auto 4700 /uL (1500-7000); Neutrophils Percent Auto 62.2 % (50-75); Platelet Count 294 X10^3/uL (150-400); Red Blood Cell Count 4.11 X10^6/uL (4.0-5.2); Red Cell Distribution Width 13.3 % (11.6-14.8); White Blood Cell Count 7.6 X10^3/uL (4.5-11.0)
--- NOTE | 2024-08-01 19:15 | DI.CT.S_ITS ---
PROCEDURE: CT ANGIO CHEST PE PROTOCOL INDICATIONS: left chest pain, hx breast CA, recent mets, eval for PE TECHNIQUE: After the administration of intravenous contrast, 2 mm thick sections acquired from the pulmonary apices to the posterior costophrenic angles. 3-dimensional maximum intensity projection (MIP) coronal and sagittal reformats were then acquired through the thorax. For radiation dose reduction, the following was used: automated exposure control, adjustment of mA and/or kV according to patient size. COMPARISON: CT chest with contrast 07/29/2024. FINDINGS: Image quality: Diagnostic. Pulmonary arteries: Pulmonary arteries are normal in size, and demonstrate no intraluminal filling defects to suggest central pulmonary embolism. Lower Neck: No enlarged lymph nodes. Thyroid: No thyroid nodules which require sonographic follow up, per consensus guidelines. Axillae: Postsurgical changes in the right axilla. No enlarged lymph nodes. Chest Wall: Bilateral mastectomies with implant reconstruction. Bones: Numerous lytic lesions seen in the appendicular and axial skeleton. Several left rib lytic lesions are associated with soft tissue component. T10 osseous lesion with soft tissue process involving the pedicle and transverse process with extension to the epidural space at that level. T9 compression fracture, possibly pathologic. Lungs and Pleura: No pneumothorax. Small bilateral pleural effusions with subjacent atelectasis. Innumerable randomly distributed solid nodules most consistent with lung metastasis. Heart: Heart size is normal. No pericardial effusion. Thoracic Vessels: No aortic aneurysm. Mediastinum and Tete: Mediastinal and hilar lymph nodes. Esophagus: No wall thickening. Small hiatal hernia. Upper Abdomen: Innumerable hypodensities in the liver concerning for metastases. Splenic calcified granulomas. IMPRESSION: No pulmonary embolus. Small bilateral pleural effusions with subjacent atelectasis. Redemonstration of innumerable bilateral pulmonary nodules, thoracic lymphadenopathy, multiple hepatic masses and osseous lesions consistent with metastatic disease. Approved by: Yara Holt M.D.,Ph.D. on 08/01/2024 at 20:54
[2024-08-01 19:24] LABS: Alanine Aminotransferase 66 IU/L (<35); Albumin 4.4 g/dL (3.5-5.0); Albumin Globulin Ratio 1.4 (1.0-2.8); Alkaline Phosphatase 198 U/L (38-126); Aspartate Aminotransferase 114 IU/L (14-36); BUN Creatinine Ratio 29.7 (6-22); Bilirubin Total 0.7 mg/dL (0.2-1.3); Blood Urea Nitrogen 30 mg/dL (7-17); Calcium 9.5 mg/dL (8.4-10.2); Carbon Dioxide 21 mmol/L (22-32); Chloride 105 mmol/L (98-107); Creatine Kinase 94 U/L (30-135); Estimated Glomerular Filt Rate 57 mL/min (>60); Globulin 3.1 g/dL (1.7-4.1); Glucose 117 mg/dL (80-110); HEMOLYSIS < 15 (0-50); Lipase 724 U/L (23-300); Potassium 4.6 mmol/L (3.4-5.1); Sodium 136 mmol/L (137-145); Total Protein 7.5 g/dL (6.3-8.2)
--- NOTE | 2024-08-01 19:32 | DI.CT.S_ITS ---
PROCEDURE: CT ABDOMEN PELVIS W CON INDICATIONS: lipase elevation TECHNIQUE: After the administration of intravenous contrast, axial sections acquired from the lung bases to the pubic symphysis. Coronal and sagittal reformats were performed. For radiation dose reduction, the following was used: automated exposure control, adjustment of mA and/or kV according to patient size. COMPARISON: Same-day CT chest angiogram 08/01/2024, CT chest 07/29/2024. FINDINGS: Image quality: Diagnostic. Lower Chest: Please see separately dictated CT chest angiogram. ABDOMEN: Liver: Innumerable hepatic masses consistent with metastatic disease. Gallbladder: No radiopaque gallstones or wall thickening. Biliary ducts: No biliary dilation. Pancreas: No ductal dilation. Hypodense 1.2 x 1.7 cm mass in the hepatic body (/64) with possible connection to the duct (). No inflammatory changes. Spleen: Size is within normal limits. Calcified granulomas, probably benign. Adrenal Glands: No adrenal nodules. Kidneys and Ureters: No hydronephrosis. No solid mass. No complex renal cystic lesion which requires follow up. Stomach and Bowel: Normal colonic caliber, without significant wall thickening. Normal caliber appendix in the right lower quadrant. Sigmoid diverticulosis without acute inflammation. Peritoneum: No abnormal intraperitoneal fluid. No free air. Ventral Wall: No significant ventral hernia. Abdominal Nodes: No retroperitoneal or mesenteric adenopathy by size criteria. Vessels: Aorta and inferior vena cava are normal in size. PELVIS: Pelvic Organs: Unremarkable. Bladder: No bladder wall thickening, accounting for underdistention. Pelvic Nodes: No enlarged lymph nodes. Miscellaneous: No inguinal hernias are seen. Bones: Innumerable lytic lesions seen throughout the appendicular and axial skeleton including areas with soft tissue component, for example in the right sacral ala, left sacroiliac, T10 pedicle and transverse process which partially extends into the epidural space, L1 left pedicle, right inferior ramus with possible pathologic fracture,. Redemonstration of T9 IMPRESSION: No acute inflammatory or infectious process identified. No CT evidence of pancreatitis. 1.7 cm hypodense mass in the pancreatic body with probable connection to the main pancreatic duct seen on sagittal view. Finding is indeterminate, differential diagnostic consideration includes metastasis versus IPMN. Continued attention on follow-up imaging. Innumerable hepatic masses consistent with metastasis. Innumerable osseous metastasis in the appendicular and axial skeleton with many lesions associated with soft tissue component. Redemonstration of T9 compression deformity, possible pathologic fracture, right inferior ramus possible pathologic fracture and T10 osseous metastasis with extension into the left epidural space. Please see separately dictated CT chest angiogram obtained concurrently 08/01/2024 for additional findings. Approved by: Yara Holt M.D.,Ph.D. on 08/01/2024 at 21:10
[2024-08-01] MEDS: ONDANSETRON 4 MG/2 ML INJ IV (19:34)
[2024-08-01 19:35] LABS: Troponin I < 0.012 ng/mL (0.01-0.034)
== END 2024-08-01 22:25 | disposition home or self-care (01) ==
PROVIDERS: Emergency Provider Emergency Medicine; Family Provider Family Medicine; PCP Family Medicine
DX: R07.9 Chest pain, unspecified (principal); M25.512 Pain in left shoulder; C79.9 Secondary malignant neoplasm of unspecified site; Z85.3 Personal history of malignant neoplasm of breast
CPT/HCPCS: 36415; 71045; 71275; 74177; 80053; 82550; 83690; 84484; 85025; 93005; 96374; 99284; J2405; Q9967

== ENCOUNTER → 2024-08-04 18:42 | Outpatient (CLI) | payer MEDICARE, SELFPAY ==
--- NOTE | 2024-08-04 18:46 | DI.MRI.S_ITS ---
PROCEDURE: MR LUMBAR SPINE WO/W CON INDICATIONS: further eval new stage 4 cancer, b/l LE weakness TECHNIQUE: Noncontrast sagittal T1 spin echo and T2 fast spin echo, sagittal STIR, post-Gadolinium axial T1 spin echo with fat saturation through the thoracic and lumbar spines, with additional T2 fast spin echo and post-contrast axial T1 spin echo with fat saturation sequences acquired through levels of suspected cord compression. COMPARISON: None. FINDINGS: Image quality: Excellent. Bones: Several osseous metastatic lesions are identified. Expansile lesion involving the left T1 transverse process. Lesion involving the right L3 pedicle. No definite epidural extension. Expansile lesion involving the right aspect of the sacrum, incompletely visualized. Lesions involving the left L4 and L5 facet joints. Lesion involving the left posterior iliac bone. Spinal cord: Visualized spinal cord is normal in size and signal. Conus medullaris is normal in location. No enhancing epidural mass lesions. Mild disc desiccation height loss. Paraspinous soft tissues: Innumerable liver metastases. Pancreatic head/uncinate process possibly cystic lesion measuring 1.9 cm. IMPRESSION: Several osseous metastatic lesions as described above. No definite epidural extension. Mild degenerative changes without significant central canal or neural foraminal stenosis. Dictated by: Royal Eubanks M.D. on 08/06/2024 at 19:59 Approved by: Royal Eubanks M.D. on 08/06/2024 at 20:04
--- NOTE | 2024-08-04 18:46 | DI.MRI.S_ITS ---
PROCEDURE: MR THORACIC SPINE WO/W CON INDICATIONS: further eval new stage 4 cancer, compare to CT 07/29/24 TECHNIQUE: Noncontrast sagittal T1 spin echo and T2 fast spin echo, sagittal STIR, post-Gadolinium axial T1 spin echo with fat saturation through the thoracic and lumbar spines, with additional T2 fast spin echo and post-contrast axial T1 spin echo with fat saturation sequences acquired through levels of suspected cord compression. COMPARISON: None. FINDINGS: Image quality: Excellent. Bones: Several marrow replacing lesions are identified. The largest involves the T9 vertebral body with near complete involvement of the vertebral body and mild pathologic compression fracture. Additional smaller lesions involving the T1, T2, T5, T6, T8, T10 and T12 vertebral bodies or posterior elements. Large lesion involving the posterior elements on the left at T10 with invasion into the T9-T10 and T10-T11 neural foramina resulting in moderate stenosis. No definite neural foraminal involvement elsewhere. Epidural extension involving the left aspect of the canal at T10 which indents the thecal sac and possibly abuts the cord (Bilsky Grade 1A/B). Spinal cord: Visualized spinal cord is normal in size and signal. Conus medullaris is normal in location. No enhancing epidural mass lesions. Paraspinous soft tissues: Mediastinal and hilar lymphadenopathy. Extensive hepatic metastases. These findings are better evaluated on recent CT. Small left and trace right pleural effusions. Large left-sided rib lesions. IMPRESSION: Multifocal osseous metastatic disease as described above with mild compression deformity of the T9 vertebral body. Epidural extension at T10 (Bilsky Grade 1A/B). Extensive extraosseous metastatic disease elsewhere, please refer to recent CT chest, abdomen and pelvis. Dictated by: Royal Eubanks M.D. on 08/06/2024 at 19:52 Approved by: Royal Eubanks M.D. on 08/06/2024 at 19:59
--- NOTE | 2024-08-04 18:46 | DI.MRI.S_ITS ---
PROCEDURE: MR CERVICAL SPINE WO/W CON INDICATIONS: further eval new stage 4 cancer TECHNIQUE: Noncontrast sagittal T1 spin echo and T2 fast spin echo, sagittal STIR, foraminal oblique sagittal T2 fast spin echo, axial gradient echo or T2 fast spin echo through the cervical spine. After the administration of contrast, axial and sagittal T1 spin echo with fat saturation through the cervical spine. COMPARISON: None. FINDINGS: Image quality: Excellent. Alignment and curvature: There is normal bony alignment. Marrow: Several marrow replacing and mildly enhancing lesions involving the C6 vertebral body, posterior elements of C5 and C6, posterior arch of C1, and left facet joints of C2, C3, C6 and C7. Spinal cord: Visualized spinal cord has normal size and signal. No cerebellar tonsillar herniation. No abnormal intramedullary enhancement. Paraspinous soft tissues: No paravertebral masses or suspicious enhancement. C2-3: No central canal stenosis. Facet uncovertebral arthropathy. Mild left and no right neural foraminal stenosis. C3-4: Disc desiccation and mild height loss. Posterior disc osteophyte complex. Facet and uncovertebral arthropathy. No significant central canal stenosis and mild bilateral neural foraminal stenosis. C4-5: Disc desiccation. Facet and uncovertebral arthropathy. No central canal stenosis. Mild left and no right neural foraminal stenosis. C5-6: Disc desiccation and mild posterior disc osteophyte complex. Mild central canal stenosis. Facet and uncovertebral arthropathy. Severe bilateral neural foraminal stenosis. C6-7: Disc desiccation and mild posterior disc osteophyte complex. No central canal stenosis. Facet and uncovertebral arthropathy. Mild bilateral neural foraminal stenosis. C7-T1: No central canal or neural foraminal stenosis. IMPRESSION: Multifocal osseous lesions as described above concerning for osseous metastatic disease. No definite epidural extension is identified. Multilevel degenerative changes of the cervical spine as described above, most pronounced at C5-C6. Dictated by: Royal Eubanks M.D. on 08/06/2024 at 19:47 Approved by: Royal Eubanks M.D. on 08/06/2024 at 19:52
--- NOTE | 2024-08-04 18:48 | DI.MRI.S_ITS ---
PROCEDURE: MR HEAD/BRAIN WO/W CON INDICATIONS: Further eval new stage 4 cancer TECHNIQUE: Noncontrast axial T1 spin echo, axial T2 fast spin echo, sagittal and axial FLAIR, coronal T2 fast spin echo, axial gradient echo, axial diffusion and ADC through the brain. After the administration of contrast, axial and coronal and sagittal T1 spin echo with fat saturation through the brain. COMPARISON: None. FINDINGS: Image quality: Excellent. CSF spaces: Basal cisterns are patent. No extra-axial fluid collections. Ventricles are normal in size and shape. Brain: Enhancing extra-axial lesion involving the anterior falx spanning both sides measuring approximately 2.6 x 2.4 x 2.0 cm. This lesion demonstrates fluid fluid versus fluid blood levels. There is no edema within the surrounding brain parenchyma. No midline shift. No intracranial bleeds. There is cerebral volume loss for age. There is periventricular white matter chronic small vessel ischemic change. The brainstem appears normal. Diffusion-weighted images demonstrate no acute infarct. No chronic ischemic insults. Normal intravascular flow voids are present. Skull and face: Several enhancing calvarial lesions concerning for metastatic disease. Largest within the posterior parietal occipital bones measuring 3.9 x 1.9 x 3.3 cm with extraosseous extension through the inner and outer tables. Several additional smaller lesions are present.. Bilateral lens replacements. Otherwise, the orbits are unremarkable. Sinuses: Sinuses and mastoids appear clear. IMPRESSION: Extra-axial enhancing lesion along the anterior falx measuring 2.6 cm which may represent metastatic disease. Several enhancing calvarial lesions concerning for metastatic disease, largest posteriorly measuring up to 3.9 cm and extending through both the inner and outer tables. No enhancing intraparenchymal lesions are identified. Dictated by: Royal Eubanks M.D. on 08/06/2024 at 19:41 Approved by: Royal Eubanks M.D. on 08/06/2024 at 19:47
== END ==
LOC: MRI 18:43
PROVIDERS: PCP Family Medicine; Referring Provider Family Medicine; Visit Provider Family Medicine
DX: C79.51 Secondary malignant neoplasm of bone (principal); C78.00 Secondary malignant neoplasm of unspecified lung; C78.7 Secondary malignant neoplasm of liver and intrahepatic bile duct; Z85.3 Personal history of malignant neoplasm of breast; G93.9 Disorder of brain, unspecified; R59.0 Localized enlarged lymph nodes; M62.81 Muscle weakness (generalized); R14.0 Abdominal distension (gaseous); R11.0 Nausea; M43.8X4 Other specified deforming dorsopathies, thoracic region; M47.812 Spondylosis without myelopathy or radiculopathy, cervical region
CPT/HCPCS: 70553; 72156; 72157; 72158; A9579

== ENCOUNTER → 2024-08-26 12:29 | Outpatient (CLI) | payer MEDICARE, SELFPAY ==
[2024-08-26 13:30] LABS: Add Manual Diff / Slide Review NO; Basophils Absolute Auto 100 /uL (0-100); Basophils Percent Auto 0.7 % (0-2); Eosinophils Absolute Auto 0 /uL (0-450); Eosinophils Percent Auto 0.4 % (2-4); Hematocrit 42.3 % (36-46); Hemoglobin 14.4 g/dL (12.0-16.0); Lymphocytes Absolute Auto 1200 /uL (1100-4500); Lymphocytes Percent Auto 10.9 % (25-40); Mean Corpuscular Hemoglobin 32.6 PG (26-34); Monocytes Absolute Auto 700 /uL (0-900); Monocytes Percent Auto 6.7 % (3-14); Neutrophils Absolute Auto 8700 /uL (1500-7000); Neutrophils Percent Auto 81.3 % (50-75); Platelet Count 243 X10^3/uL (150-400); Red Cell Distribution Width 13.7 % (11.6-14.8); White Blood Cell Count 10.7 X10^3/uL (4.5-11.0)
[2024-08-26 13:45] LABS: Alanine Aminotransferase 85 IU/L (<35); Albumin 4.5 g/dL (3.5-5.0); Albumin Globulin Ratio 1.4 (1.0-2.8); Alkaline Phosphatase 211 U/L (38-126); Amylase 205 U/L (30-110); Aspartate Aminotransferase 134 IU/L (14-36); BUN Creatinine Ratio 33.9 (6-22); Blood Urea Nitrogen 37 mg/dL (7-17); Calcium 9.4 mg/dL (8.4-10.2); Carbon Dioxide 21 mmol/L (22-32); Chloride 103 mmol/L (98-107); Estimated Glomerular Filt Rate 52 mL/min (>60); Globulin 3.2 g/dL (1.7-4.1); Glucose 130 mg/dL (80-110); HEMOLYSIS < 15 (0-50); Lipase 1019 U/L (23-300); Potassium 4.2 mmol/L (3.4-5.1); Sodium 136 mmol/L (137-145); Total Protein 7.7 g/dL (6.3-8.2)
== END ==
PROVIDERS: PCP Family Medicine; Referring Provider Internal Medicine Hematology & Oncology; Visit Provider Internal Medicine Hematology & Oncology
DX: C50.911 Malignant neoplasm of unspecified site of right female breast (principal); C78.7 Secondary malignant neoplasm of liver and intrahepatic bile duct; C78.01 Secondary malignant neoplasm of right lung
CPT/HCPCS: 36415; 80053; 82150; 83690; 85025